=== PATIENT | male | born 1970 | race Caucasian/White ===

== ENCOUNTER 2022-05-22 09:53 | Emergency (ER) | payer BC, SELFPAY ==
[2022-05-22 09:57] VITALS: BP 107/85; PULSE 90; RESP 20; TEMP 36.3; O2SAT 97; BMI 23.7
--- NOTE | 2022-05-22 10:14 | ED.NECK ---
HPI - Neck Pain/Injury General Chief Complaint: Neck Injury/Pain Stated Complaint: Stiff neck Time Seen by Provider: 05/22/22 10:09 Source: patient, family and RN notes reviewed History of Present Illness HPI Narrative: 51-year-old man presenting to the emergency department with complaints of neck pain. Says he went to roll over around 5:00 a.m. sounds like felt a pinching then just could not move. Any movement generated a twisting of muscles; spouse could see them contract. 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 This seemed to make it though so he could not turn his neck the other direction. Further conversation, he recalls getting Flexeril around that time I believe, he did not wake up for 3 days. He is not having radiating pain beyond the neck and trapezius as demonstrated. Can not really move his neck to the right. Tried Tylenol massage ice and heat. No fever, no rash described. Related Data Home Medications Medication Instructions Recorded Confirmed No Known Home Medications 05/22/22 05/22/22 Allergies Allergy/AdvReac Type Severity Reaction Status Date / Time amoxicillin Allergy Mild Verified 05/22/22 10:03 Review of Systems Status of ROS: Reports: 6 or more systems reviewed and unremarkable except as noted in History and below [facility] Medical History (Updated 05/22/22 @ 10:34 by Costa Burden MD) No significant past medical history Surgical History (Updated 05/22/22 @ 10:05 by Lindsey Hagan RN) No significant past surgical history Social History Smoking Status: Current every day smoker How often do you have a drink containing alcohol: 4 or more times a week How many standard drinks containing alcohol do you have on a typical day: 1 or 2 AUDIT-C Alcohol total score: 4 Non-prescribed substance use: denies use Exam Narrative: Exam Narrative: Carefully casually groomed. Appears really uncomfortable. Head is tilted off to the left at about 15?. Appears to be moving all extremities without difficulty. Well perfused peripherally. No apparent loss of sensation A good deal of tension through the right greater than left trapezial musculature as well as the higinio cervical musculature on the right. mild soreness to palpation. Cardiovascular with a little elevated rate Skin warm and dry. No rash. Const: Vital Signs, click to edit/add: Vital Signs - 24 hr 05/22/22 09:57 Temperature 97.4 F L Pulse Rate [Left P ulse Oximeter] 90 Respiratory Rate 20 Blood Pressure [Le ft Upper Arm] 107/85 Pulse Oximetry 97 Documenting provider has reviewed patient's vital signs: yes Course Course Hospital Course: Interview and exam as above Vital Signs Vital signs: Initial Vital Signs Temperature 97.4 F L 05/22/22 09:57 Temperature Source Temporal Artery Scan 05/22/22 09:57 Pulse Rate 90 05/22/22 09:57 Respiratory Rate 20 05/22/22 09:57 Blood Pressure 107/85 05/22/22 09:57 Blood Pressure Mean 92 05/22/22 09:57 Blood Pressure Position Sitting 05/22/22 09:57 Pulse Oximetry 97 05/22/22 09:57 Oxygen Delivery Method 05/22/22 09:57 Vital Signs Temperature 97.4 F L 05/22/22 09:57 Pulse Rate 90 05/22/22 09:57 Respiratory Rate 20 05/22/22 09:57 Blood Pressure 107/85 05/22/22 09:57 Pulse Oximetry 97 05/22/22 09:57 Temperature 97.4 F L 05/22/22 09:57 Pulse Rate 90 05/22/22 09:57 Respiratory Rate 20 05/22/22 09:57 Blood Pressure 107/85 05/22/22 09:57 Pulse Oximetry 97 05/22/22 09:57 MDM - Neck Pain/Injury MDM Narrative Medical decision making narrative: There is no radiating pain at least ENT extremities suspect this is more localized impingement with resulting muscles spasm. Discharge Plan Discharge Clinical Impression: Torticollis Patient Disposition: Home, Self-Care Condition: Stable Additional Instructions: You can still try ice and cold packs. I do think though you might benefit from child care director/manipulation. Local recommendations for chiropractors -- Marko Edward and Rhonda Landers At the [facility] are osteopathic physicians [place] who do manipulations last I heard. Otherwise could also call for primary care and/or physical therapy appointment. Can take up to 800 mg of ibuprofen per dose which can be combined with these medications prescribed today. Take 60 mg of prednisone for your 1st dose, 40 mg daily days 3 through 5. Prednisone and [place] from [employer] Prescriptions: No Action No Known Home Medications 0RF Stand Alone Forms: MyHealth Info Instructions
== END 2022-05-22 10:49 | disposition home or self-care (01) ==
LOC: ED 10:36
PROVIDERS: Emergency Provider Family Medicine
DX: M43.6 Torticollis (principal); M54.2 Cervicalgia
CPT/HCPCS: 99283; 99284